=== PATIENT | female | born 1955 | race Caucasian/White ===

== ENCOUNTER 2018-09-09 06:02 | Observation (INO) ==
--- NOTE | 2018-09-09 06:12 | Emergency Department Note ---
Disposition Clinical Impression: Hypokalemia, Weakness, Status post parathyroidectomy, Hypomagnesemia, Hypophosphatemia, Hypocalcemia Disposition: Admitted As Inpatient Condition: Good Referrals: NONE,PCP [Primary Care Provider] - Forms: ED Satisfaction Letter, Work/School Release Time of Disposition: 07:37 General Adult HPI - General Chief complaint: ED General Medical Stated complaint: unable to walk Time Seen by Provider: 09/09/18 06:11 Source: patient, EMS Mode of arrival: EMS Limitations: no limitations Nursing Notes Reviewed: Yes Vital Signs Reviewed: Yes - History of Present Illness HPI Narrative: 62-year-old female presents today stating that she is very weak in her legs and shaking and she feels like she cannot walk. She can physically walk and stand but she states she feels very weak when she does it. She states that she had parathyroid surgery and had them removed along with her right thyroid on by Dr. Almodovar in [place] and states that she felt weak starting yesterday Tuesday when she came home. She states she just felt more weak today. There is been no numbness no tingling no incontinence there is no shortness of breath no other symptoms - Related Data Home Medications Medication Instructions Recorded Confirmed Gemfibrozil [Lopid] 600 mg PO BID 06/13/17 09/09/18 Metoprolol XL (24 HR) Succ [Toprol 25 mg PO DAILY 06/13/17 09/09/18 Xl] Atorvastatin [Lipitor] 80 mg PO DAILY 10/19/17 09/09/18 Phenytoin ER [Dilantin ER] 200 mg PO TID 10/19/17 09/09/18 Lisinopril [Zestril] 20 mg PO DAILY 01/10/18 09/09/18 Naproxen [Naprosyn] 500 mg PO BID 01/10/18 09/09/18 Cholecalciferol (D-3) [Vitamin D] 1,000 unit PO DAILY 09/07/18 09/09/18 Magnesium Oxide [Mag-Ox] 400 mg PO DAILY 09/07/18 09/09/18 Sod Phos Di, [place]/K Phos [place] 250 mg PO QID 09/07/18 09/09/18 [Virt-Phos 250 Neutral Tablet] Previous Rx's Medication Instructions Recorded HYDROcodone/Acet 5/325 mg [[place] 1 tab PO Q4H PRN 5 Days #30 tab 09/07/18 5-325 mg] Mupirocin [Bactroban Oint] 22 appl TP BID #1 tube 09/07/18 cephALEXin [Keflex] 500 mg PO TID 7 Days #21 capsule 09/07/18 Allergies Allergy/AdvReac Type Severity Reaction Status Date / Time No Known Allergies Allergy Verified 09/09/18 06:04 Review of Systems: ROSAll other systems are negative except as noted/marked Chart generated with voice recognition software Nursing notes reviewed Old records reviewed Past Medical History - Past Medical History Attestation: Yes The following information was validated with the patient. Source: patient, old records reviewed, nursing notes reviewed Medical history: Reports: hyperlipidemia, hypertension, seizures, thyroid disease Surgical history: Reports: , orthopedic, other Psychiatric history: Reports: no psych history HOIST OPERATOR history: Reports: no HOIST OPERATOR history - Social History Smoking Status: Never smoker Smokeless Tobacco Status: No Alcohol use: Reports: none Drug use: Reports: none Physical Exam - General Limitations: no limitations General appearance: alert, in no apparent distress - Head Head exam: atraumatic, normocephalic, normal inspection - Eye Eye exam: Present: normal appearance, PERRL, EOMI - ENT ENT exam: normal exam, normal oropharynx, mucous membranes moist, normal external ear exam - Neck Neck exam: Present: normal inspection, full ROM, trachea midline, other (Well-h ealing surgical scar with no signs of infection). Absent: tenderness, thyromegaly - Chest Chest inspection: Present: normal inspection, symmetric chest wall rise. Absent: tenderness - Respiratory Respiratory exam: Present: normal lung sounds bilaterally - Cardiovascular Cardiovascular exam: Present: regular rate, normal rhythm - Abdominal Exam Abdominal exam: Present: soft, Non-Tender, normal bowel sounds - Extremities Exam Extremities exam: Present: normal inspection, full ROM, normal capillary refill. Absent: tenderness, pedal edema - Expanded Lower Extremity Exam Hip/Pelvis exam: Present: normal inspection, full ROM Upper leg exam: Present: normal inspection, full ROM Knee exam: Present: normal inspection, full ROM Lower leg exam: Present: normal inspection, full ROM Ankle exam: Present: normal inspection, full ROM Foot/toe exam: Present: normal inspection, full ROM Neurovascular/Tendon exam: Present: normal capillary refill. Absent: motor deficit, sensory deficit, tendon deficit - Back Exam Back exam: Present: normal inspection, full ROM. Absent: tenderness - Neurological Exam Neurological exam: Present: alert, oriented X3, CN II-XII intact, reflexes normal. Absent: motor sensory deficit - Psychiatric Psychiatric exam: Present: normal affect, normal mood - Skin Skin exam: Present: warm, dry, intact, normal color Course Vital Signs Temperature 98.9 F 09/09/18 06:04 Pulse Rate 91 09/09/18 06:04 Respiratory Rate 18 09/09/18 06:04 Blood Pressure 150/67 09/09/18 06:04 O2 Sat by Pulse Oximetry 93 09/09/18 06:04 Temperature 98.9 F 09/09/18 06:04 Pulse Rate 95 09/09/18 07:00 Respiratory Rate 18 09/09/18 07:00 Blood Pressure 133/58 09/09/18 07:00 O2 Sat by Pulse Oximetry 95 09/09/18 07:18 Oxygen Delivery Oxygen Delivery Room Air Medical Decision Making - [facility] Narrative Medical decision making narrative: 62-year-old female who presents today with weakness in her legs. She states she does have some chronic back pain headache of her some Dilaudid and so that helped. She takes [place] at home with safe does not really help. We says her second -70 multiple infusions to get her collection except normal. I did discuss this with Dr. Toledo as I do think she needs to come in and get her electrolytes up department over a period of time and not just something we can do in the ER and he agreed and accepted her for admission. Admission orders were placed. Patient's agreeable with staying. Patient remained on a monitor and stable. - Medical Records Medical records reviewed: Yes I reviewed the patient's medical records. - Lab Data Lab results reviewed: Yes I reviewed the patient's lab results. Result diagrams: 09/09/18 06:31 09/09/18 06:31 Lab Results 09/09/18 09/09/18 09/09/18 Range/Units 06:31 06:31 07:04 WBC 7.5 (4.3-11.1) K/mcL RBC 3.45 L (3.82-4.97) M/mcL Hgb 10.6 L D (11.5-15.4) g/dL Hct 31.8 L (35.3-44.9) % MCV 92.2 (83.0-100.0) fL MCH 30.7 (28.0-33.3) pg MCHC 33.3 (31.6-35.5) g/dL RDW 13.2 (11.5-14.5) % Plt Count 197 (140-400) K/mcL MPV 10.3 (9.4-12.4) fL Immature Gran % 0.8 (0-4) % Seg Neutrophils % 73.5 % Lymphocytes % 15.7 % Monocytes % 8.0 % Eosinophils % 1.9 % Basophils % 0.1 % Neutrophils # 5.5 (1.6-8.9) K/mcL Lymphocytes # 1.2 (0.6-4.6) K/mcL Monocytes # 0.6 (0.0-1.3) K/mcL Eosinophils # 0.1 (0.0-0.6) K/mcL Basophils # 0.0 (0.0-0.2) K/mcL VBG pH 7.51 H (7.32-7.42) pH Units VBG pCO2 35 L (41-51) mmHg VBG pO2 127 H (25-50) mmHg VBG HCO3 28 H (21-27) mEq/L VBG Total CO2 29 mEq/L VBG O2 Saturation 99 % VBG Base Excess 5 mEq/L VBG Lactic Acid 1.6 (0.5-2.2) mmol/L Venous Sodium 144 (135-145) mEq/L Sodium 143 (136-145) mEq/L Venous Potassium 3.2 L (3.5-5.5) mEq/L Potassium 3.2 L (3.5-5.1) mEq/L Venous Chloride 111 H (98-107) mEq/L Chloride 107 (98-107) mEq/L Carbon Dioxide 27 (23-29) mEq/L BUN 11 (8-23) mg/dL Creatinine 0.50 L (0.60-1.20) mg/dL Est GFR ( Amer) > 60 (> 60) Est GFR (Non-Af Amer) > 60 (> 60) BUN/Creatinine Ratio 22 (6-26) Glucose 151 H (70-105) mg/dL Whole Bld Glucose 142 H (65-95) mg/dl Calculated Osmolality 298 (280-300) Calcium 8.1 L (8.6-10.3) mg/dL Venous Ioniz Calcium 1.02 L (1.15-1.35) mmol/L Phosphorus 2.3 L (2.7-4.5) mg/dL Magnesium 1.2 L (1.6-2.6) mg/dL
[2018-09-09 06:38] LABS: Basophils % 0.1 %; Eosinophils # 0.1 K/mcL (0.0-0.6); Eosinophils % 1.9 %; Hematocrit 31.8 % (35.3-44.9); Hemoglobin 10.6 g/dL (11.5-15.4); Immature Granulocytes % 0.8 % (0-4); Lymphocytes # 1.2 K/mcL (0.6-4.6); Lymphocytes % 15.7 %; Mean Corpuscular HGB Conc 33.3 g/dL (31.6-35.5); Mean Corpuscular Hemoglobin 30.7 pg (28.0-33.3); Mean Corpuscular Volume 92.2 fL (83.0-100.0); Mean Platelet Volume 10.3 fL (9.4-12.4); Monocytes # 0.6 K/mcL (0.0-1.3); Neutrophils # 5.5 K/mcL (1.6-8.9); Platelet Count 197 K/mcL (140-400); Red Blood Count 3.45 M/mcL (3.82-4.97); Red Cell Distribution Width 13.2 % (11.5-14.5); Segmented Neutrophils % 73.5 %
[2018-09-09] MEDS ORDERED: *HR* HYDROmorphone (PF) 1 MG/ML SYRINGE IVP ONE (07:00)
[2018-09-09 07:10] LABS: BUN/Creatinine Ratio 22 (6-26); Blood Urea Nitrogen 11 mg/dL (8-23); Calcium 8.1 mg/dL (8.6-10.3); Carbon Dioxide 27 mEq/L (23-29); Chloride 107 mEq/L (98-107); Glucose 151 mg/dL (70-105); Magnesium 1.2 mg/dL (1.6-2.6); Osmolality,Calculated 298 (280-300); Phosphorous 2.3 mg/dL (2.7-4.5); Potassium 3.2 mEq/L (3.5-5.1); Sodium 143 mEq/L (136-145); eGFR For Non-African Americans > 60 (> 60)
[2018-09-09 07:18] LABS: VBG Base Excess 5 mEq/L; VBG Chloride 111 mEq/L (98-107); VBG Glucose 142 mg/dl (65-95); VBG HCO3 28 mEq/L (21-27); VBG Ionized Calcium 1.02 mmol/L (1.15-1.35); VBG Oxygen Saturation 99 %; VBG PCO2 35 mmHg (41-51); VBG PH 7.51 pH Units (7.32-7.42); VBG PO2 127 mmHg (25-50); VBG Total CO2 29 mEq/L
[2018-09-09] MEDS ORDERED: MOM Conc 10 ML UD.LIQ PO PRN (08:18)
[2018-09-09] MEDS ORDERED: Calcium Chloride 1,000 MG in 0.9 % Sodium Chloride 100 ML IVPB ONE ×2 (08:18→10:30)
[2018-09-09] MEDS ORDERED: Acetaminophen 325 MG TABLET PO PRN (08:18)
[2018-09-09] MEDS ORDERED: Naloxone 0.4 MG/ML INJ IVP PRN (08:18)
[2018-09-09] MEDS ORDERED: Mag Hydrox/Al Hydrox/Simeth 30 ML UDC PO PRN (08:18)
[2018-09-09] MEDS ORDERED: Potassium Effervescent 25 MEQ TABLET.EFF PO ONE (08:18)
[2018-09-09] MEDS ORDERED: *HR* HYDROcodone/Acet 5/325 mg TABLET PO PRN ×2 (08:18)
[2018-09-09] MEDS ORDERED: Potassium Chloride Elixir 20 MEQ/15 ML UDC PO ONE (08:30)
[2018-09-09] MEDS ORDERED: Magnesium Oxide 400 MG TABLET PO SCH (09:00)
[2018-09-09] MEDS ORDERED: Metoprolol XL (24 HR) Succ 25 MG TAB.ER.24H PO SCH (09:00)
--- NOTE | 2018-09-09 09:53 | Internal Med History&Physical ---
Date of Encounter: 09/09/18 Time of Encounter: 09:25 Assessment and Plan (1) Hypokalemia Current visit: Yes Status: Acute Possibly multifactorial etiology including respiratory alkalosis noted in emergency room. Supplemental potassium has been ordered. Monitor labs. (2) Anemia Current visit: Yes Status: Acute Anemia testing has been ordered. Qualifiers: Anemia type: unspecified type Qualified Code(s): D64.9 - Anemia, unspe cified (3) Hyperglycemia Current visit: Yes Status: Acute Hemoglobin A1c was 6.4% on 06/20/2018. Glucose in emergency room was 151 MG/DL. Recheck hemoglobin A1c and monitor Accu-Cheks. (4) Low vitamin D level Current visit: Yes Status: Acute Vitamin D level was 12 NG/mL on 12/29/2017. Recheck. (5) Hypocalcemia Current visit: Yes Status: Acute Recheck calcium with albumin level. (6) Hypomagnesemia Current visit: Yes Status: Acute IV magnesium sulfate ordered in emergency room. Recheck labs. (7) Hypophosphatemia Current visit: Yes Status: Acute Neutra-Phos ordered. Recheck labs today. (8) Seizures Current visit: No Status: Chronic She reports no seizures in 6 years. I told her she should discuss possible tapering/discontinuation of Dilantin with her PCP. Internal Medicine - H&P: HPI Chief complaint: Weakness Admitted From: Emergency Dept Plans for Post Hospital Care: Home History of present illness: Ms. Romo is a 62 year old female who came to emergency room stating she felt weakness in her legs and felt unstable walking. She reports being discharged from [facility] yesterday after having right hemithyroidectomy and parathyroid removal for parathyroid adenoma with hypercalcemia. She had no obvious postop complications and was discharged home in stable condition. She felt increasing weakness over the hours after arriving home so came to emergency room for further evaluation. She was found to have hypokalemia, hypomagnesemia, hypophos phatemia, and mild anemia. She was admitted to [facility] floor for ongoing care needs. She denies pain at the present time other than chronic low back pain and some discomfort in her feet. She denies dyspnea, vomiting or diarrhea. Past Med Surg Social Fam HX - Past Medical History Medical history: hyperlipidemia, hypertension, seizures, thyroid disease Psychiatric history: no psych history - Past Surgical History Surgical History: , orthopedic, other Additional surgical history: parathyroidectomy - Social History Smoking Status: Never smoker Smokeless Tobacco Status: No Alcohol use: none Drug use: none Internal Medicine - H&P: Meds Gemfibrozil [Lopid] 600 mg PO BID 06/13/17 [History] Metoprolol XL (24 HR) Succ [Toprol Xl] 25 mg PO DAILY 06/13/17 [History] Atorvastatin [Lipitor] 80 mg PO DAILY 10/19/17 [History] Phenytoin ER [Dilantin ER] 200 mg PO TID 10/19/17 [History] Lisinopril [Zestril] 20 mg PO DAILY 01/10/18 [History] Naproxen [Naprosyn] 500 mg PO BID 01/10/18 [History] Cholecalciferol (D-3) [Vitamin D] 1,000 unit PO DAILY 09/07/18 [History] HYDROcodone/Acet 5/325 mg [[place] 5-325 mg] 1 tab PO Q4H PRN 5 Days #30 tab 09/07/18 [Rx] Magnesium Oxide [Mag-Ox] 400 mg PO DAILY 09/07/18 [History] Mupirocin [Bactroban Oint] 22 appl TP BID #1 tube 09/07/18 [Rx] Sod Phos Di, [place]/K Phos [place] [Virt-Phos 250 Neutral Tablet] 250 mg PO QID 09/07/18 [History] cephALEXin [Keflex] 500 mg PO TID 7 Days #21 capsule 09/07/18 [Rx] Allergy/AdvReac Type Severity Reaction Status Date / Time No Known Allergies Allergy Verified 09/09/18 06:04 All Systems PM: A 10-system review of systems was performed and is negative for pertinent findings except as documented above in the HPI. Review of systems: Review of systems from her October 2017 [facility] hospitalization were reviewed and revised as below. Gen.: Her weight has increased from 95.708 kg on 10/19/2017 to 101.151 kg today. Cardiovascular: She has history of hypertension. She denies NH heart failure angina DVT or pulmonary embolus Respiratory: She is a lifelong nonsmoker and has no known chronic lung disease. GI: She denies disorders of her liver gallbladder or exocrine pancreas : She denies hematuria or dysuria or kidney stones Neurologic: She has history of seizures but states she has not had a seizure in at least 6 years with Dilantin use. She denies large distribution strokes. Endocrine: She has history of hyperlipidemia but denies diabetes or thyroid disease. She had parathyroidectomy with right hemithyroidectomy surgery 09/07/2018 as per history of present illness. Hematology/oncology: She denies blood disorders cancers or anemia. She was unaware labs in emergency room showed anemia. Psychiatric: She denies anxiety or depression or other mental health issues Muscle skeletal: She has DJD. She has had bilateral carpal tunnel surgeries as well as low back surgery [laminectomy] approximately 2011. She denies gout. - Constitutional Vitals: Temp Pulse Resp BP Pulse Ox 99.8 F H 103 16 115/60 92 09/09/18 08:36 09/09/18 08:36 09/09/18 08:36 09/09/18 08:36 09/09/18 08:36 Exam: Gen.: She is a well-developed overweight female lying in bed who appears in no acute distress HEENT: Head is atraumatic and normocephalic. Eyes: EOMI. There is no scleral icterus. Mouth: Mucosa is moist. Neck: Supple and nontender. There is no thyromegaly or adenopathy noted. She has a surgical dressing in place in her midline lower anterior neck area which I did not remove. Heart: Regular without murmurs gallops or ectopics. There is tachycardia with rate approximately 112/m. Lungs: No wheezes crackles or egophony are heard Abdomen: Soft and nontender. No masses or guarding are noted. Extremities: There is trace edema of the lower anterior shins and dorsum of the feet bilaterally. Dorsalis pedis and posttibial pulses are 1-2 over 2 bilaterally. Neurologic: Mental status: She is talkative and a good historian. Cranial nerves: Smile is symmetric. Forehead wrinkles bilaterally. Tongue protrudes midline. EOMI. Motor: There is no pronator drift. Cerebellar: Finger to nose intact bilaterally. Skin: Warm and dry Internal Med - H&P Results - Labs CBC & Chem 7: 09/09/18 06:31 09/09/18 06:31 Labs: Short CBC 09/09/18 Range/Units 06:31 WBC 7.5 (4.3-11.1) K/mcL Hgb 10.6 L D (11.5-15.4) g/dL Hct 31.8 L (35.3-44.9) % Plt Count 197 (140-400) K/mcL Neutrophils # 5.5 (1.6-8.9) K/mcL BMP 09/09/18 06:31 Sodium 143 Potassium 3.2 L Chloride 107 Carbon Dioxide 27 BUN 11 Creatinine 0.50 L Glucose 151 H Calcium 8.1 L - ABG Interpretation ABG results: 09/09/18 07:04 VBG pH 7.51 H VBG pCO2 35 L VBG pO2 127 H VBG HCO3 28 H VBG Total CO2 29 VBG O2 Saturation 99 VBG Base Excess 5
[2018-09-09] MEDS: Docusate Oral Soln 100 MG/10 ML UDC PO SCH ×2 (11:02→20:03)
[2018-09-09] MEDS: *HR* OxyCODONE Immed Rel 5 MG TABLET PO PRN ×2 (11:02→20:02)
[2018-09-09] MEDS: Cholecalciferol (D-3) 1,000 UNIT TABLET PO SCH (11:03)
[2018-09-09] MEDS: 0.9 % Sodium Chloride w KCl 20 MEQ/1,000 ML MLS IVC SCH ×2 (11:04→20:02)
[2018-09-09] MEDS: cephALEXin 500 MG CAPSULE PO SCH ×3 (11:04→20:04)
[2018-09-09 11:13] LABS: Alanine Aminotransferase 8 Units/L (7-52); Albumin 3.5 g/dL (3.5-5.7); Albumin/Globulin Ratio 1.1 (1.1-2.2); Alkaline Phosphatase 119 Units/L (34-104); Aspartate Amino Transferase 15 Units/L (13-39); BUN/Creatinine Ratio 18 (6-26); Bilirubin,Total 0.3 mg/dL (0.3-1.0); Blood Urea Nitrogen 10 mg/dL (8-23); Calcium 8.1 mg/dL (8.6-10.3); Carbon Dioxide 30 mEq/L (23-29); Chloride 105 mEq/L (98-107); Globulin 3.2 g/dL (2.4-3.5); Glucose 202 mg/dL (70-105); Magnesium 1.6 mg/dL (1.6-2.6); Osmolality,Calculated 299 (280-300); Potassium 3.5 mEq/L (3.5-5.1); Sodium 142 mEq/L (136-145); Total Protein 6.7 g/dL (6.4-8.9); eGFR For Non-African Americans > 60 (> 60)
[2018-09-09 11:28] LABS: Thyroid Stimulating Hormone 0.172 mcIU/mL (0.340-5.600)
[2018-09-09] MEDS: Phenytoin Oral Susp 100 MG/4 ML UDC PO SCH ×2 (16:17→20:03)
[2018-09-09] MEDS: Magnesium Oxide 400 MG TABLET PO SCH ×2 (16:17→20:03)
[2018-09-09 20:50] LABS: Ferritin 56 ng/mL (10-120)
[2018-09-09 21:32] LABS: Estimated Average Glucose 143 mg/dl; Hemoglobin A1C 6.6 %
[2018-09-10 04:54] LABS: Basophils % 0.1 %; Eosinophils # 0.1 K/mcL (0.0-0.6); Eosinophils % 1.9 %; Hematocrit 29.4 % (35.3-44.9); Hemoglobin 9.6 g/dL (11.5-15.4); Immature Granulocytes % 0.9 % (0-4); Lymphocytes # 1.2 K/mcL (0.6-4.6); Lymphocytes % 18.3 %; Mean Corpuscular HGB Conc 32.7 g/dL (31.6-35.5); Mean Corpuscular Hemoglobin 30.5 pg (28.0-33.3); Mean Corpuscular Volume 93.3 fL (83.0-100.0); Mean Platelet Volume 10.4 fL (9.4-12.4); Monocytes # 0.6 K/mcL (0.0-1.3); Monocytes % 8.9 %; Neutrophils # 4.7 K/mcL (1.6-8.9); Platelet Count 185 K/mcL (140-400); Red Blood Count 3.15 M/mcL (3.82-4.97); Red Cell Distribution Width 13.3 % (11.5-14.5); Segmented Neutrophils % 69.9 %
[2018-09-10 05:16] LABS: BUN/Creatinine Ratio 23 (6-26); Blood Urea Nitrogen 11 mg/dL (8-23); Carbon Dioxide 26 mEq/L (23-29); Chloride 109 mEq/L (98-107); Glucose 146 mg/dL (70-105); Magnesium 1.4 mg/dL (1.6-2.6); Osmolality,Calculated 296 (280-300); Phosphorous 2.9 mg/dL (2.7-4.5); Sodium 142 mEq/L (136-145); eGFR For Non-African Americans > 60 (> 60)
[2018-09-10 07:29] VITALS: BP 123/74
[2018-09-10] MEDS: Cholecalciferol (D-3) 1,000 UNIT TABLET PO SCH (08:03)
[2018-09-10] MEDS: cephALEXin 500 MG CAPSULE PO SCH (08:03)
[2018-09-10] MEDS: Phenytoin Oral Susp 100 MG/4 ML UDC PO SCH (08:03)
[2018-09-10] MEDS: Docusate Oral Soln 100 MG/10 ML UDC PO SCH (08:03)
[2018-09-10] MEDS: Magnesium Oxide 400 MG TABLET PO SCH (08:04)
[2018-09-10] MEDS ORDERED: Cyanocobalamin (B-12) 1,000 MCG/ML VIAL IM ONE (10:51)
--- NOTE | 2018-09-10 10:52 | Discharge Summary ---
Orders not resulted at time of discharge: Pending orders 09/09/18 10:48 Vitamin D 25 Hydroxy Routine 09/11/18 04:00 Magnesium AM 0400 Date of Encounter: 09/10/18 Time of Encounter: 10:45 - Discharge Diagnosis (1) Hypokalemia Priority: Primary Status: Resolved (2) Anemia Priority: Secondary Status: Acute Qualifiers: Anemia type: unspecified type Qualified Code(s): D64.9 - Anemia, unspecified (3) Low vitamin D level Priority: Secondary Status: Acute (4) Hypocalcemia Priority: Secondary Status: Acute (5) Hypomagnesemia Priority: Secondary Status: Acute (6) Hypophosphatemia Priority: Secondary Status: Acute (7) Seizures Priority: Secondary Status: Chronic (8) DM type 2 (diabetes mellitus, type 2) Priority: Secondary Status: Acute Qualifiers: Diabetes mellitus bed bug exterminator insulin use: without bed bug exterminator use Diabetes mellitus complication status: without complication Qualified Code(s): E11.9 - Type 2 diabetes mellitus without complications Hospital course: Ms. Romo is a 62 year old female who came to emergency room stating she felt weakness in her legs and felt unstable walking. She reports being discharged from [facility] yesterday after having right hemithyroidectomy and parathyroid removal for parathyroid adenoma with hypercalcemia. She had no obvious postop complications and was discharged home in stable condition. She felt increasing weakness over the hours after arriving home so came to emergency room for further evaluation. She was found to have hypokalemia, hypomagnesemia, hypophosphatemia, and mild anemia. She was admitted to [facility] floor for ongoing care needs. Initial orders were written by the emergency room physician. I saw her on September 09 and performed a history and physical. Supplemental potassium was given and potassium level normalized to 4.0 by day of discharge. Her weakness had resolved when I saw her on September 10 and she felt stable for discharge home. Her PCP can monitor potassium level. She was given magnesium sulfate IV in the emergency room and was started on higher dose oral magnesium oxide. Magnesium level was 1.4 on day of discharge. She will increase magnesium oxide to 400 mg 3 times a day at discharge. Her PCP can monitor labs. Phosphorus level was normal at 2.9 on day of discharge. Her PCP can monitor this. Calcium level remained low at 8.0 day of discharge with albumin 3.5. She will be started on calcium carbonate. Her PCP can monitor this. Anemia testing showed ferritin 56, B12 93, and folate 11.0. Iron profile is pending at time of discharge. Her PCP can follow up on this. She was given a B12 injection IM prior to discharge and will start oral B12 supplement. TSH returned slightly suppressed at 0.172. Her PCP can follow up on this. Hemoglobin A1c returned at 6.6% consistent with DM 2, diet-controlled. She complained of pain in her feet onset since surgery on September 07. I told her to use OTC Tylenol and discuss this further with her PCP if pain persists. She will be discharged home today and follow with her PCP Dr. Bo within 1 week. - Time Spent with Patient Total time spent providing and/or coordinating discharge services: - Discharge Medications Prescriptions: Calcium Carbonate [Calcium] 500 mg PO QID #28 tab.chew Cyanocobalamin (B-12) [Vitamin B12] 1,000 mcg PO DAILY #30 tablet Lactobacillus [Culturelle] 1 each PO BID #8 cap.sprink Magnesium Oxide [Mag-Ox] 400 mg PO TID #21 tablet Home Medications: Gemfibrozil [Lopid] 600 mg PO BID 06/13/17 [History] Metoprolol XL (24 HR) Succ [Toprol Xl] 25 mg PO DAILY 06/13/17 [History] Atorvastatin [Lipitor] 80 mg PO DAILY 10/19/17 [History] Phenytoin ER [Dilantin ER] 200 mg PO TID 10/19/17 [History] Lisinopril [Zestril] 20 mg PO DAILY 01/10/18 [History] Cholecalciferol (D-3) [Vitamin D] 1,000 unit PO DAILY 09/07/18 [History] HYDROcodone/Acet 5/325 mg [[place] 5-325 mg] 1 tab PO Q4H PRN 5 Days #30 tab 09/07/18 [Rx] Mupirocin [Bactroban Oint] 22 appl TP BID #1 tube 09/07/18 [Rx] Sod Phos Di, [place]/K Phos [place] [Virt-Phos 250 Neutral Tablet] 250 mg PO QID 09/07/18 [History] cephALEXin [Keflex] 500 mg PO TID 7 Days #21 capsule 09/07/18 [Rx] Acetaminophen [Tylenol] 650 mg PO Q6HR PRN tablet 09/10/18 [Rx] Calcium Carbonate [Calcium] 500 mg PO QID #28 tab.chew 09/10/18 [Rx] Cyanocobalamin (B-12) [Vitamin B12] 1,000 mcg PO DAILY #30 tablet 09/10/18 [Rx] Lactobacillus [Culturelle] 1 each PO BID #8 cap.sprink 09/10/18 [Rx] Magnesium Oxide [Mag-Ox] 400 mg PO TID #21 tablet 09/10/18 [Rx] Allergies/Adverse Reactions: Allergy/AdvReac Type Severity Reaction Status Date / Time No Known Allergies Allergy Verified 09/09/18 06:04 Date of admission: 09/09/18 07:36 Primary care physician: Shaina Bo M.D. Consults: 09/09/18 08:54 Consult to Word Processing Operator [CONS] Routine Reason for SW Consult: Discharge Planning - Constitutional Vitals: Temp Pulse Resp BP Pulse Ox 98.3 F 82 14 123/74 95 09/10/18 07:00 09/10/18 07:00 09/10/18 07:00 09/10/18 07:00 09/10/18 07:00 - Patient Status Disposition: Home, Self-Care Condition: Good - Discharge Instructions Follow Up With: NONE,PCP [Primary Care Provider] - 1 week - Diet and Activity Activity: resume usual activities as tolerated Diet: advance to your usual diet
[2018-09-10 20:32] LABS: % Iron Saturation 9 % (15-50); Iron 23 mcg/dL (50-170); Transferrin 185 mg/dL (203-362)
== END 2018-09-10 11:57 | disposition home or self-care (01) ==
LOC: EMEROOPIK 06:02 → INPPIK 06:02
PROVIDERS: ADMIT Internal Medicine; ATTEND Internal Medicine